=== PATIENT | male | born 1955 | race Caucasian/White ===

== ENCOUNTER 2017-11-04 09:58 | Emergency (ER) | payer OTHER ==
[~2017-11-04] VITALS: Ht 193 cm; Wt 119.6 kg
[2017-11-04 11:41] LABS: BASOPHIL (%) 1.1 % (0-1); EOSINOPHIL (%) 12.4 % (0-5); EOSINOPHIL COUNT 0.5 K/uL (0-0.3); HEMOGLOBIN 12.1 G/DL (12.5-16.6); IMMATURE GRANULOCYTE (%) 0.8 % (0.0-0.7); LYMPHOCYTE (%) 24.3 % (15-42); LYMPHOCYTE COUNT 0.9 K/uL (1.0-2.8); MCH 38.8 PG (29.0-34.0); MCHC 36.7 G/DL (30.0-36.0); MCV 105.8 FL (86-99); MONOCYTE (%) 6.6 % (3-12); MONOCYTE COUNT 0.3 K/uL (0-0.8); NEUTROPHIL (%) 54.8 % (45-76); NEUTROPHIL COUNT 2.1 K/uL (1.8-6.4); RBC DIS.WIDTH-CV 14.3 % (11.8-14.6); RBC DIS.WIDTH-SD 55.4 % (39-53); RED BLOOD COUNT 3.12 M/uL (4.00-5.50); WHITE BLOOD COUNT 3.8 K/uL (4.1-10.2)
[2017-11-04 11:50] LABS: CHLORIDE 101 mEq/L (99-109); POTASSIUM 3.7 mEq/L (3.7-5.4); SODIUM 138 mEq/L (136-147)
[2017-11-04 11:51] LABS: GLUCOSE 121 mg/dL (70-99)
[2017-11-04 11:55] LABS: CREATININE 1.4 mg/dL (0.6-1.3); GFR ESTIMATE (CALCULATED) 54 mL/min/ (58.99-99999)
[2017-11-04 11:56] LABS: UREA NITROGEN (BUN) 12 mg/dL (9-23)
[2017-11-04 12:26] LABS: IMM.PLATELET FRACTION 4.4 (1-7); PLAT.SUFFICIENCY DECREASED; PLATELET COUNT 36 K/uL (156-360)
[2017-11-04 12:58] LABS: SERUM ETHYL ALCOHOL 117 mg/dL
[2017-11-04] MEDS ORDERED: LEVAQUIN750 MG PO (13:27)
[2017-11-04 13:47] VITALS: BP 142/77
== END 2017-11-04 14:05 | disposition home or self-care (01) ==
LOC: EME 09:58
PROVIDERS: Emergency Medicine
DX: J32.9 Chronic sinusitis, unspecified (principal); H70.001 Acute mastoiditis without complications, right ear; F10.129 Alcohol abuse with intoxication, unspecified; Y90.5 Blood alcohol level of 100-119 mg/100 ml; E11.9 Type 2 diabetes mellitus without complications; I10 Essential (primary) hypertension; M10.9 Gout, unspecified
CPT/HCPCS: 70450; 71045; 80048; 85025; 93005; 99281; 99284; G0480

== ENCOUNTER → 2018-04-02 | Outpatient (CLI) | payer OTHER ==
[~2018-04-02] MED LIST: ALDACTONE50 MG PO; ALLERGY RELIE15.8 ML BOTH NARES; ATIVAN0.5 MG PO; FLOMAX0.4 MG PO; FUROSEMIDE40 MG PO; LEVAQUIN750 MG PO; LEVOTHYROXINE25 MCG PO; LISINOPRIL40 MG PO; LOPRESSOR100 M1 PO; OMEPRAZOLE40 M1 PO; PAXIL10 MG PO; SIMVASTATIN10 MG PO; ULORIC80 MG PO
[2018-04-02 11:18] LABS: TYPE OF FLUID PARACENTESIS
[2018-04-02 11:43] LABS: APPEARANCE CLEAR; BODY FLUID RBC'S < 1000 /MM^3 (0-100); BODY FLUID WBC'S 87 /MM^3 (0-500)
[2018-04-02 11:59] LABS: BODY FLUID GLUCOSE 112 MG/DL; BODY FLUID LDH 42 IU/L; BODY FLUID PROTEIN < 3.0 G/DL
[2018-04-02 12:13] LABS: BODY FLUID EOSINOPHILS 2 % (0-25); MONONUCLEAR WBC'S 81 %; POLYNUCLEAR WBC'S 17 % (0-25)
[2018-04-03 20:51] LABS: BODY FLUID PH 7.7 (())
== END | disposition home or self-care (01) ==
LOC: RAD 10:06
PROVIDERS: Radiology Diagnostic Radiology
PROC: 0W9G3ZX Drainage of Peritoneal Cavity, Percutaneous Approach, Diagnostic (ICD-10-PCS; principal; 2018-04-02)
DX: R18.8 Other ascites (principal); K74.60 Unspecified cirrhosis of liver; K76.9 Liver disease, unspecified
CPT/HCPCS: 49083; 82945; 83615 91; 83986 90; 84157; 87070; 87205; 88108; 88305; 89051

== ENCOUNTER 2018-04-06 13:49 | Inpatient (IN) | payer OTHER ==
[~2018-04-06] VITALS: Ht 193 cm; Wt 116.4 kg
[~2018-04-06 13:49] MED LIST changes: -ALDACTONE50 MG PO; -FUROSEMIDE40 MG PO
[2018-04-06 16:36] LABS: ALBUMIN 2.7 g/dL (3.2-4.8); CHLORIDE 101 mEq/L (99-109); POTASSIUM 4.8 mEq/L (3.7-5.4); SODIUM 135 mEq/L (136-147)
[2018-04-06 16:38] LABS: GLUCOSE 124 mg/dL (70-99); TOTAL PROTEIN 6.2 g/dL (6.4-8.3)
[2018-04-06 16:40] LABS: TOTAL BILIRUBIN 3.9 mg/dL (0.0-1.0)
[2018-04-06 16:42] LABS: ALKALINE PHOSPHATASE 63 IU/L (3-129); CREATININE 2.3 mg/dL (0.6-1.3); GFR ESTIMATE (CALCULATED) 31 mL/min/ (58.99-99999)
[2018-04-06 16:43] LABS: AST (GOT) 49 IU/L (2-34); UREA NITROGEN (BUN) 30 mg/dL (9-23)
[2018-04-06 16:45] LABS: ALT (GPT) 25 IU/L (3-49)
[2018-04-06 17:00] LABS: HEMOGLOBIN 9.8 G/DL (12.5-16.6); MCH 39.7 PG (29.0-34.0); MCHC 36.3 G/DL (30.0-36.0); MCV 109.3 FL (86-99); RBC DIS.WIDTH-SD 60.4 % (39-53); RED BLOOD COUNT 2.47 M/uL (4.00-5.50)
[2018-04-06 17:42] LABS: IMM.PLATELET FRACTION 4.7 (1-7); PLAT.SUFFICIENCY VERY DECREASED; PLATELET COUNT 38 K/uL (156-360)
[2018-04-06 18:15] LABS: INTER. NORMALIZED RATIO 1.5
[2018-04-06 18:17] LABS: PTT 24.5 SEC (25-37)
[2018-04-06] MEDS ORDERED: ALDACTONE50 MG PO (18:46)
[2018-04-06] MEDS ORDERED: FUROSEMIDE40 MG PO (18:47)
[2018-04-06] MEDS ORDERED: ULORIC80 MG PO (18:47)
[2018-04-06 23:47] VITALS: BP 142/74
[2018-04-07] VITALS (7 sets, daily range): BP systolic 86–148; BP diastolic 50–84
[2018-04-07 06:18] LABS: ALBUMIN 2.6 G/DL (3.2-4.8); CHLORIDE 102 MEQ/L (99-109); GFR ESTIMATE (CALCULATED) 36 mL/min/ (58.99-99999); GLUCOSE 135 mg/dL (70-99); PHOSPHORUS 3.3 mg/dL (2.5-4.9); POTASSIUM 4.2 MEQ/L (3.7-5.4); SODIUM 136 MEQ/L (136-147); UREA NITROGEN (BUN) 26 mg/dL (9-23)
[2018-04-07 07:03] LABS: HEMATOCRIT 24.7 % (38.0-50.0); HEMOGLOBIN 8.6 G/DL (12.5-16.6); MCH 38.6 PG (29.0-34.0); MCHC 34.8 G/DL (30.0-36.0); MCV 110.8 FL (86-99); RBC DIS.WIDTH-SD 61.1 % (39-53); RED BLOOD COUNT 2.23 M/uL (4.00-5.50); WHITE BLOOD COUNT 3.4 K/uL (4.1-10.2)
[2018-04-07 07:41] LABS: IMM.PLATELET FRACTION 3.5 (1-7); PLAT.SUFFICIENCY DECREASED; PLATELET COUNT 32 K/uL (156-360)
[2018-04-08 02:38] LABS: APPEARANCE SL.HAZY ((CLEAR)); BILIRUBIN NEGATIVE; BLOOD NEGATIVE; COLOR YELLOW ((YELLOW)); GLUCOSE (STRIP) NEGATIVE; KETONES NEGATIVE; LEUKOCYTES NEGATIVE; NITRITE NEGATIVE; PROTEIN (STRIP) 30
[2018-04-08 02:49] LABS: BACTERIA RARE /HPF; EPITHELIAL CELLS RARE /HPF; MUCUS NONE SEEN /LPF; RED BLOOD CELLS 0-5 /HPF (0-5); UCUL ADDED? NO; URIC ACID CRYSTALS 3+ /HPF; WHITE BLOOD CELLS 0-5 /HPF (0-5)
[2018-04-08 06:21] LABS: HEMATOCRIT 22.2 % (38.0-50.0); HEMOGLOBIN 7.9 G/DL (12.5-16.6); MCH 38.7 PG (29.0-34.0); MCHC 35.6 G/DL (30.0-36.0); MCV 108.8 FL (86-99); NRBC (%) 0.9 /100 WBC (0-0); RBC DIS.WIDTH-CV 14.6 % (11.8-14.6); RBC DIS.WIDTH-SD 58.5 % (39-53); RED BLOOD COUNT 2.04 M/uL (4.00-5.50); WHITE BLOOD COUNT 2.3 K/uL (4.1-10.2)
[2018-04-08 06:42] LABS: CHLORIDE 101 MEQ/L (99-109); GFR ESTIMATE (CALCULATED) 54 mL/min/ (58.99-99999); POTASSIUM 4.2 MEQ/L (3.7-5.4); SODIUM 136 MEQ/L (136-147); UREA NITROGEN (BUN) 23 mg/dL (9-23)
[2018-04-08 06:43] LABS: CREATININE 1.4 MG/DL (0.6-1.3); GLUCOSE 88 mg/dL (70-99)
[2018-04-08 07:04] VITALS: BP 102/65
[2018-04-08 08:03] LABS: BASOPHIL (%) 0.9 % (0-1); EOSINOPHIL (%) 17.7 % (0-5); EOSINOPHIL COUNT 0.4 K/uL (0-0.3); IMM.PLATELET FRACTION 2.8 (1-7); LYMPHOCYTE (%) 30.7 % (15-42); LYMPHOCYTE COUNT 0.7 K/uL (1.0-2.8); MONOCYTE (%) 8.7 % (3-12); MONOCYTE COUNT 0.2 K/uL (0-0.8); PLAT.SUFFICIENCY VERY DECREASED
[2018-04-08 08:05] LABS: PLATELET COUNT 26 K/uL (156-360)
[2018-04-08 11:11] VITALS: BP 124/65
[2018-04-08 11:27] LABS: ABSOLUTE RETICULOCYTE CT. 0.05 M/uL (0.02-0.08); IMM.RETIC FRACTION 11.7 % (3-19); RETIC HGB EQUIVALENT 40.1 (28-36); RETICULOCYTE COUNT 2.6 % (0.5-1.8)
[2018-04-08 11:58] LABS: FERRITIN 564 NG/ML (22-322); IRON 130 MCG/DL (35-150); TRANSFERRIN (TIBC) 103.3 mg/dL (215-380)
[2018-04-08 12:02] LABS: TRANSFERRIN SATUR. 126 % (20-55)
[2018-04-08 12:52] LABS: FOLIC ACID (FOLATE) 7.1 NG/ML (5.0-22.0)
[2018-04-08 14:59] LABS: HEMATOCRIT 27.8 % (38.0-50.0); HEMOGLOBIN 9.7 G/DL (12.5-16.6); MCV 110.8 FL (86-99)
[2018-04-08 15:25] VITALS: BP 116/69
[2018-04-09 06:44] LABS: EOSINOPHIL (%) 15.4 % (0-5); EOSINOPHIL COUNT 0.3 K/uL (0-0.3); HEMATOCRIT 21.6 % (38.0-50.0); LYMPHOCYTE (%) 32.8 % (15-42); LYMPHOCYTE COUNT 0.6 K/uL (1.0-2.8); MCH 38.9 PG (29.0-34.0); MCHC 35.6 G/DL (30.0-36.0); MCV 109.1 FL (86-99); MONOCYTE (%) 10.8 % (3-12); MONOCYTE COUNT 0.2 K/uL (0-0.8); NEUTROPHIL COUNT 0.8 K/uL (1.8-6.4); RBC DIS.WIDTH-CV 14.5 % (11.8-14.6); RBC DIS.WIDTH-SD 57.5 % (39-53); RED BLOOD COUNT 1.98 M/uL (4.00-5.50)
[2018-04-09 06:45] LABS: HEMOGLOBIN 7.7 G/DL (12.5-16.6)
[2018-04-09 06:47] LABS: ALBUMIN 2.7 G/DL (3.2-4.8); ALKALINE PHOSPHATASE 36 IU/L (3-129); ALT (GPT) 12 IU/L (3-49); AST (GOT) 24 IU/L (2-34); CHLORIDE 102 MEQ/L (99-109); CREATININE 1.2 MG/DL (0.6-1.3); GFR ESTIMATE (CALCULATED) > 59 mL/min/ (58.99-99999); GLUCOSE 87 mg/dL (70-99); POTASSIUM 4.4 MEQ/L (3.7-5.4); SODIUM 135 MEQ/L (136-147); TOTAL BILIRUBIN 3.5 MG/DL (0.0-1.0); TOTAL PROTEIN 4.8 G/DL (6.4-8.3); UREA NITROGEN (BUN) 20 mg/dL (9-23)
[2018-04-09 07:11] LABS: IMM.PLATELET FRACTION 2.6 (1-7); PLAT.SUFFICIENCY DECREASED
[2018-04-09 07:12] LABS: PLATELET COUNT 25 K/uL (156-360)
[2018-04-09 07:43] VITALS: BP 115/68
[2018-04-09 12:17] LABS: HEMATOCRIT 25.2 % (38.0-50.0); HEMOGLOBIN 8.9 G/DL (12.5-16.6); MCV 110.5 FL (86-99)
[2018-04-09 15:15] VITALS: BP 112/68
[2018-04-09 15:52] VITALS: BP 130/72
[2018-04-09 20:00] VITALS: BP 128/72
[2018-04-09 21:16] VITALS: BP 117/61
[2018-04-10 06:11] LABS: EOSINOPHIL COUNT 0.3 K/uL (0-0.3); HEMATOCRIT 21.5 % (38.0-50.0); HEMOGLOBIN 7.7 G/DL (12.5-16.6); LYMPHOCYTE (%) 36.5 % (15-42); LYMPHOCYTE COUNT 0.7 K/uL (1.0-2.8); MCH 38.9 PG (29.0-34.0); MCHC 35.8 G/DL (30.0-36.0); MCV 108.6 FL (86-99); MONOCYTE (%) 9.5 % (3-12); MONOCYTE COUNT 0.2 K/uL (0-0.8); NEUTROPHIL COUNT 0.7 K/uL (1.8-6.4); RBC DIS.WIDTH-CV 14.3 % (11.8-14.6); RBC DIS.WIDTH-SD 56.5 % (39-53); RED BLOOD COUNT 1.98 M/uL (4.00-5.50)
[2018-04-10 06:15] LABS: ALBUMIN 2.8 G/DL (3.2-4.8); ALKALINE PHOSPHATASE 41 IU/L (3-129); ALT (GPT) 13 IU/L (3-49); AST (GOT) 24 IU/L (2-34); CHLORIDE 101 MEQ/L (99-109); CREATININE 1.1 MG/DL (0.6-1.3); GFR ESTIMATE (CALCULATED) > 59 mL/min/ (58.99-99999); GLUCOSE 82 mg/dL (70-99); POTASSIUM 4.6 MEQ/L (3.7-5.4); SODIUM 135 MEQ/L (136-147); TOTAL BILIRUBIN 3.1 MG/DL (0.0-1.0); TOTAL PROTEIN 4.8 G/DL (6.4-8.3); UREA NITROGEN (BUN) 18 mg/dL (9-23)
[2018-04-10 07:07] LABS: IMM.PLATELET FRACTION 3.6 (1-7); PLAT.SUFFICIENCY VERY DECREASED
[2018-04-10 07:16] LABS: PLATELET COUNT 25 K/uL (156-360)
[2018-04-10 07:35] VITALS: BP 91/51
[2018-04-10 09:27] VITALS: BP 100/55
[2018-04-10 14:18] LABS: THYROTROPIN (TSH) 5.5 MIU/L (0.4-5.5)
[2018-04-10] MEDS ORDERED: ALDACTONE25 MG PO (15:30)
[2018-04-10] MEDS ORDERED: LOPRESSOR25 MG PO (15:30)
== END 2018-04-10 17:15 | disposition home or self-care (01) | DRG 683 ==
LOC: EME 13:49 → EDOF 19:53 → 5EAST 19:53 → ENRESERV 20:19 → 5EAST 22:31
PROVIDERS: Hospitalist; Internal Medicine Nephrology; Nurse Practitioner Family
PROC: 0W9G3ZZ Drainage of Peritoneal Cavity, Percutaneous Approach (ICD-10-PCS; principal; 2018-04-07)
PROC: 0W9G3ZZ Drainage of Peritoneal Cavity, Percutaneous Approach (ICD-10-PCS; 2018-04-09)
DX: N17.9 Acute kidney failure, unspecified (principal); E86.0 Dehydration; T46.4X5A Adverse effect of angiotensin-converting-enzyme inhibitors, initial encounter; K70.31 Alcoholic cirrhosis of liver with ascites; K76.6 Portal hypertension; F10.20 Alcohol dependence, uncomplicated; D73.1 Hypersplenism; D61.818 Other pancytopenia; D68.9 Coagulation defect, unspecified; I95.9 Hypotension, unspecified; M10.9 Gout, unspecified; I12.9 Hypertensive chronic kidney disease with stage 1 through stage 4 chronic kidney disease, or unspecified chronic kidney disease; E11.22 Type 2 diabetes mellitus with diabetic chronic kidney disease; N18.3 Chronic kidney disease, stage 3 (moderate); E78.5 Hyperlipidemia, unspecified; E66.9 Obesity, unspecified; Z90.5 Acquired absence of kidney; Z85.528 Personal history of other malignant neoplasm of kidney; Z86.010 Personal history of colon polyps; Z68.31 Body mass index [BMI] 31.0-31.9, adult
CPT/HCPCS: 36415; 49083; 76770; 80048; 80053; 80069; 81003; 81256 90; 82140; 82565; 82607; 82728; 82746; 83540; 84443; 84466; 84520; 85014; 85018; 85025; 85027; 85046; 85610; 85651; 85730; 93005; 93970; 99281; 99285; J7030; P9047

== ENCOUNTER → 2018-04-24 | Outpatient (CLI) | payer OTHER ==
[~2018-04-24] MED LIST changes: +ALDACTONE25 MG PO; +ALDACTONE50 MG PO; +FUROSEMIDE40 MG PO; +LOPRESSOR25 MG PO
== END | disposition home or self-care (01) ==
LOC: RAD 04-16 08:15
PROC: 0W9G3ZZ Drainage of Peritoneal Cavity, Percutaneous Approach (ICD-10-PCS; principal; 2018-04-24)
DX: R18.8 Other ascites (principal); K74.60 Unspecified cirrhosis of liver; K76.9 Liver disease, unspecified
CPT/HCPCS: 49083; P9047

== ENCOUNTER → 2018-04-29 | Outpatient (CLI) | payer OTHER | END | disposition home or self-care (01) | LOC: RAD 08:26 | PROC: 0W9G3ZZ Drainage of Peritoneal Cavity, Percutaneous Approach (ICD-10-PCS; principal; 2018-04-29) | DX: R18.8 Other ascites (principal); K74.60 Unspecified cirrhosis of liver | CPT/HCPCS: 49083; P9047 ==